=== PATIENT | male | born 1935 | race Caucasian/White ===

== ENCOUNTER → 2017-10-07 | Outpatient (CLI) | payer MEDICARE ==
[~2017-10-07] MED LIST: AMLO-96 PO; AMOX875T60 PO; ASPI-1471 PO; FESO8PT PO; FINA5TAB67 PO; GLUC-178 PO; MECL25TA9 PO; MECLIZINE PO; MELO-149 PO; MULT-1335 PO; MULT-865 PO; PNEU0.5D3 IM; PROSTATE SUPPLEMENT; RAMI10CA52 PO; SOLI5TAB PO; TAMS0.4C25 PO
[2017-10-07 09:37] LABS: PLATELET COUNT, AUTOMATED 176 K/uL (150-450)
[2017-10-07 10:33] LABS: LDL CHOLESTEROL 46 mg/dl
== END ==
LOC: LAB 08:56
PROVIDERS: ATTEND Internal Medicine
DX: R94.6 Abnormal results of thyroid function studies (principal); I10 Essential (primary) hypertension; N40.0 Benign prostatic hyperplasia without lower urinary tract symptoms; R79.89 Other specified abnormal findings of blood chemistry; R73.9 Hyperglycemia, unspecified
CPT/HCPCS: 36415; 81001; 82040; 82247; 82310; 82374; 82435; 82465; 82565; 82947; 83036; 83718; 84075; 84132; 84155; 84295; 84443; 84450; 84460; 84478; 84520; 85025

== ENCOUNTER → 2017-11-06 | Outpatient (CLI) | payer MEDICARE | LOC: LAB 13:13 | PROVIDERS: ATTEND Internal Medicine | DX: R31.9 Hematuria, unspecified (principal) | CPT/HCPCS: 81001 ==

== ENCOUNTER → 2018-01-13 | Outpatient (CLI) | payer MEDICARE | LOC: LAB 08:59 | PROVIDERS: ATTEND Urology | DX: Z12.5 Encounter for screening for malignant neoplasm of prostate (principal) | CPT/HCPCS: 36415; G0103; 84153 ==

== ENCOUNTER 2018-06-09 13:45 | Inpatient (IN) | payer MEDICARE ==
[~2018-06-09] VITALS: Ht 180.3 cm; Wt 100.2 kg
[~2018-06-09 13:45] MED LIST changes: +AMLO-101 PO; +AMLO-111 PO; -AMLO-96 PO; -RAMI10CA52 PO; +RAMI10CA9 PO
--- NOTE | 2018-06-09 13:59 | ER Report ---
History and Physical Time Seen By MD: 13:58 Hx. of Stated Complaint: PATIENT REPORTS SWOLLEN LEFT CALF FOR 1 WEEK HPI/ROS CHIEF COMPLAINT: Left leg swelling HISTORY OF PRESENT ILLNESS: Patient is an 83-year-old male comes emergency Department today with a complaint of left leg swelling. Patient states he notices about a week ago no fever chills or sweats nausea vomiting diarrhea no chest pain or shortness of breath no history of DVTs went to see his primary care referred her here for ultrasound patient denies any calf pain or tenderness patient has no additional complaints noted REVIEW OF SYSTEMS: Respiratory: No cough, no dyspnea. Cardiovascular: No chest pain, no palpitations. Gastrointestinal: No vomiting, no abdominal pain. Musculoskeletal: Left calf swelling Remainder of the 14 system rev: Yes Allergies: Coded Allergies: No Known Drug Allergies (Verified , 07/21/14) Home Meds Active Scripts Amlodipine Besylate (NORVASC) 5 Mg Tablet, 1 TAB PO QDAY, #90 TAB 1 Refill Prov:INO AVENDANO MD 06/01/18 Meloxicam (MOBIC) 7.5 Mg Tablet, 7.5 MG PO bid with food PRN for pain, #60 TAB 3 Refills Prov:INO AVENDANO MD 05/31/18 Ramipril (RAMIPRIL) 10 Mg Capsule, 10 MG PO QDAY, #90 CAPSULE 3 Refills Prov:INO AVENDANO MD 04/21/18 Reported Medications Solifenacin Succinate (VESICARE) Unknown Strength Tablet, PO 10/06/17 Multivitamin (DAILY MULTIPLE VITAMIN) 1 Each Tablet, 1 TAB PO DAILY 03/23/17 Tamsulosin Hcl (FLOMAX) 0.4 Mg Cap.er.24h, 0.4 MG PO BID, CAP 03/23/17 Finasteride (FINASTERIDE) 5 Mg Tablet, 5 MG PO QDAY 03/23/17 Aspirin (ASPIR 81) 81 Mg Tablet., 1 TAB PO QDAY, TAB 03/23/17 Reviewed Nurses Notes: Yes Old Medical Records Reviewed: Yes Hx Smoking: No Smoking Status: Former Smoker Exposure to Second Hand Smoke?: No Hx Substance Use Disorder: No Hx Alcohol Use: Yes (1 NIGHTLY) Constitutional Vital Sign - Last 24 Hours 06/09/18 13:51 Temp 97.8 Pulse 69 Resp 20 B/P (MAP) 142/88 Pulse Ox 89 O2 Delivery Room Air Physical Exam General appearance: Alert no distress. Respiratory: Chest is non tender, lungs are clear to auscultation. Cardiac: Regular rate and rhythm [ ] Left lower some examination patient has unilateral swelling left calf measuring at 17 right At 15-1/4 patient has neurovascular intact +2 to +2.5 pitting edema otherwise unremarkable exam no redness swelling or erythema noted DIFFERENTIAL DIAGNOSIS: After history and physical exam differential diagnosis was considered for DVT versus cellulitis Medical Decision Making Data Points Result Diagram: 06/09/18 1440 06/09/18 1440 Laboratory Hematology Test 06/09/18 14:40 Red Blood Count 5.35 M/uL (4.00-5.60) Mean Corpuscular Volume 96.5 fL (80.0-96.0) Mean Corpuscular Hemoglobin 32.3 pg (26.0-33.0) Mean Corpuscular Hemoglobin Concent 33.5 g/dL (32.0-36.0) Red Cell Distribution Width 14.6 % (11.5-14.5) Mean Platelet Volume 8.3 fL (7.2-11.1) Neutrophils (%) (Auto) 64.1 % (39.4-72.5) Lymphocytes (%) (Auto) 26.0 % (17.6-49.6) Monocytes (%) (Auto) 6.1 % (4.1-12.4) Eosinophils (%) (Auto) 2.9 % (0.4-6.7) Basophils (%) (Auto) 0.9 % (0.3-1.4) Nucleated RBC Relative Count (auto) 0.0 /100WBC Neutrophils # (Auto) 5.2 K/uL (2.0-7.4) Lymphocytes # (Auto) 2.1 K/uL (1.3-3.6) Monocytes # (Auto) 0.5 K/uL (0.3-1.0) Eosinophils # (Auto) 0.2 K/uL (0.0-0.5) Basophils # (Auto) 0.1 K/uL (0.0-0.1) Nucleated RBC Absolute Count (auto) 0.00 K/uL Prothrombin Time 13.8 seconds (12.0-14.4) Prothromb Time International Ratio 1.06 Activated Partial Thromboplast Time 27 seconds (23-35) D-Dimer Quantitative (PE/DVT) 3.58 ug/ml (0-0.50) Sodium Level 138 mmol/L (137-145) Potassium Level 4.1 mmol/L (3.5-5.0) Chloride Level 104 mmol/L (98-107) Carbon Dioxide Level 28 mmol/L (22-30) Blood Urea Nitrogen 16 mg/dl (9-21) Creatinine 1.00 mg/dl (0.66-1.25) Glomerular Filtration Rate Calc > 60.0 Random Glucose 100 mg/dl (75-110) Calcium Level 8.5 mg/dl (8.4-10.2) Total Bilirubin 0.6 mg/dl (0.2-1.3) Aspartate Amino Transf (AST/SGOT) 20 U/L (0-35) Alanine Aminotransferase (ALT/SGPT) 22 U/L (0-56) Alkaline Phosphatase 64 U/L (0-126) Troponin I < 0.012 ng/ml Total Protein 6.4 g/dl (6.3-8.2) Albumin 3.3 g/dl (3.5-5.0) Chemistry Test 06/09/18 14:40 White Blood Count 8.1 k/uL (4.5-11.0) Red Blood Count 5.35 M/uL (4.00-5.60) Hemoglobin 17.3 g/dL (14.0-18.0) Hematocrit 51.6 % (42.0-52.0) Mean Corpuscular Volume 96.5 fL (80.0-96.0) Mean Corpuscular Hemoglobin 32.3 pg (26.0-33.0) Mean Corpuscular Hemoglobin Concent 33.5 g/dL (32.0-36.0) Red Cell Distribution Width 14.6 % (11.5-14.5) Platelet Count 232 K/uL (150-450) Mean Platelet Volume 8.3 fL (7.2-11.1) Neutrophils (%) (Auto) 64.1 % (39.4-72.5) Lymphocytes (%) (Auto) 26.0 % (17.6-49.6) Monocytes (%) (Auto) 6.1 % (4.1-12.4) Eosinophils (%) (Auto) 2.9 % (0.4-6.7) Basophils (%) (Auto) 0.9 % (0.3-1.4) Nucleated RBC Relative Count (auto) 0.0 /100WBC Neutrophils # (Auto) 5.2 K/uL (2.0-7.4) Lymphocytes # (Auto) 2.1 K/uL (1.3-3.6) Monocytes # (Auto) 0.5 K/uL (0.3-1.0) Eosinophils # (Auto) 0.2 K/uL (0.0-0.5) Basophils # (Auto) 0.1 K/uL (0.0-0.1) Nucleated RBC Absolute Count (auto) 0.00 K/uL Prothrombin Time 13.8 seconds (12.0-14.4) Prothromb Time International Ratio 1.06 Activated Partial Thromboplast Time 27 seconds (23-35) D-Dimer Quantitative (PE/DVT) 3.58 ug/ml (0-0.50) Glomerular Filtration Rate Calc > 60.0 Calcium Level 8.5 mg/dl (8.4-10.2) Total Bilirubin 0.6 mg/dl (0.2-1.3) Aspartate Amino Transf (AST/SGOT) 20 U/L (0-35) Alanine Aminotransferase (ALT/SGPT) 22 U/L (0-56) Alkaline Phosphatase 64 U/L (0-126) Troponin I < 0.012 ng/ml Total Protein 6.4 g/dl (6.3-8.2) Albumin 3.3 g/dl (3.5-5.0) Coagulation Test 06/09/18 14:40 Prothrombin Time 13.8 seconds Prothromb Time International Ratio 1.06 Activated Partial Thromboplast Time 27 seconds D-Dimer Quantitative (PE/DVT) 3.58 ug/ml ED Course/Re-evaluation ED Course ED clinical course and medical decision making this is an 83-year-old male comes in with unilateral lower extremity swelling confirmed extensive DVT from the base of the pedal planus process although into the iliacs follow-up supplementary a CT angiogram confirms PEs fresh and local on the right greater than left saturations have been maintained throughout rest of his labs are relatively unremarkable externum anticoagulation including Lovenox and aspirin is resting comfortable at time of admission Decision to Disposition Date: Jun 09, 2018 Decision to Disposition Time: 16:05 Depart Departure Latest Vital Signs Vital Signs Date Time Temp Pulse Resp B/P (MAP) Pulse Ox O2 Delivery O2 Flow Rate FiO2 06/09/18 13:51 97.8 69 20 142/88 89 Room Air Impression: Primary Impression: DVT (deep venous thrombosis) Additional Impression: Pulmonary emboli Condition: Improved Disposition: HOME OR SELF-CARE Referrals: INO AVENDANO MD (PCP) Problem Qualifiers ANTON GAUTAM MD Jun 09, 2018 13:59
[2018-06-09] MEDS ORDERED: ASPIRIN 81 MG CHEW PO ONE (14:35)
[2018-06-09] MEDS ORDERED: ENOXAPARIN 100 MG/ML SYR SC SCH (14:35)
--- NOTE | 2018-06-09 14:43 | EKG ---
FACILITY: [facility] - [place] PATIENT NAME: TAYLOR QUACH : [id number] MR: [id number] V: [id number] EXAM DATE: ORDERING PHYSICIAN: ANTON GAUTAM TECHNOLOGIST: SARAH Mckenna Reason : CP Blood Pressure : / mmHG Vent. Rate : 063 BPM Atrial Rate : 063 BPM P-R Int : 278 ms QRS Dur : 086 ms QT Int : 402 ms P-R-T Axes : 086 044 060 degrees QTc Int : 411 ms Sinus rhythm with 1st degree AV block Otherwise normal ECG No previous ECGs available Confirmed by Guy Bill ([id number]) on 06/09/2018 8:35:12 PM Referred By: LOTUS Confirmed By:Guy Tabor
[2018-06-09] MEDS ORDERED: NS(*) 0.9% 50 ML BAG 50 ML ONE (14:49)
[2018-06-09] MEDS ORDERED: IOPAMIDOL 76% 75 ML INFUS BTL 75 ML ONE (14:49)
[2018-06-09 14:57] LABS: PLATELET COUNT, AUTOMATED 232 K/uL (150-450)
[2018-06-09 15:10] LABS: INR 1.06
--- NOTE | 2018-06-09 15:50 | RADIOLOGY IMAGING REPORT ---
FACILITY: PATIENT NAME: Shashank Choudhury : 1935 MR: [id number] V: [id number] EXAM DATE: ORDERING PHYSICIAN: ANTON GAUTAM TECHNOLOGIST: Location: [facility] [place] Patient: Shashank Choudhury : 1935 Visit/Account:[id number] Date of Sevice: 06/09/[address] pulmonary angiogram with contrast, 3-D computer reconstructions. HISTORY: Shortness of breath. COMPARISON: Left leg Doppler ultrasound 06/09/2018. [address] images were obtained of the chest using 100 mL intravenous Isovue-370. 3-D SLAB nip reconstruction images were obtained of the pulmonary arteries. One of the following dose optimiz ation techniques was utilized in the performance of this exam: Automated exposure control; adjustment of the mA and/or kV according to the patient's size; or use of an iterative reconstruction techniqu e. Specific details can be referenced in the facility's radiology CT exam operational policy. FINDINGS: The central pulmonary arteries are mildly enlarged. Several small filling defects are present in sec ond order and third order branches of the right pulmonary artery, mainly supplying the right lower lo be consistent with a combination of chronic and acute thrombi. A few small filling defects may be pr esent in several left lower lobe pulmonary artery branches. The heart is mildly enlarged. Several l ymph nodes measuring up to 1.5 cm in diameter are present in the mediastinum and right pulmonary hilu m. Several calcified lymph nodes are present in the subcarinal region. The coronary arteries are ca lcified. The thoracic aorta is ectatic and mildly calcified. Streaky densities and several wedge-sh aped opacities are present in the periphery of both lungs. Degenerative changes are present in the s pine. Healed fractures are present in the right ribs. No pneumothorax. Arterial calcifications are present in the upper abdomen. Calcified granulomas are present in the sp nils. IMPRESSION: Positive for chronic and acute pulmonary emboli. Atherosclerosis. Bilateral lung pleural parenchymal scarring. Old pulmonary infarcts are possible. Old granulomatous disease. Mild cardiomegaly. Results were discussed with ANTON GAUTAM at 06/09/2018 3:45 PM. Report Dictated By: Patrick Juárez MD at 06/09/2018 3:34 PM Report E-Signed By: Patrick Juárez MD at 06/09/2018 3:47 PM WSN:[email or web address]
--- NOTE | 2018-06-09 15:57 | RADIOLOGY IMAGING REPORT ---
FACILITY: [facility] PATIENT NAME: Shashank Choudhury : 1935 MR: [id number] V: [id number] EXAM DATE: ORDERING PHYSICIAN: ANTON GAUTAM TECHNOLOGIST: Location: [facility] [place] Patient: Shashank Choudhury : 1935 Visit/Account:[id number] Date of Sevice: 06/09/2018 Chest with lateral, two views. HISTORY: Shortness of breath. COMPARISON: None. The heart size is normal. The thoracic aorta is mildly ectatic and calcified. Pulmonary vessels in the right mid lung may be slightly diminished. Mild streaky densities are present in the right lung and both lung bases. No pleural fluid. Degenerative changes are present in the spine and shoulders. No pneumothorax. IMPRESSION: Mild bilateral pleural parenchymal scarring. Aortic atherosclerosis. COMMENT: The patient underwent a chest CT scan on 06/09/2018, see separate report. Report Dictated By: Patrick Juárez MD at 06/09/2018 3:51 PM Report E-Signed By: Patrick Juárez MD at 06/09/2018 3:52 PM WSN:[email or web address]
--- NOTE | 2018-06-09 16:04 | RADIOLOGY IMAGING REPORT ---
FACILITY: [facility] PATIENT NAME: Shashank Choudhury : 1935 MR: [id number] V: [id number] EXAM DATE: ORDERING PHYSICIAN: ANTON GAUTAM TECHNOLOGIST: Location: [facility] Patient: Shashank Choudhury : 1935 Visit/Account:[id number] Date of Sevice: 06/09/2018 Examination: Left lower extremity duplex sonogram Comparisons: None. HISTORY: Swelling. FINDINGS: The deep venous structures of the left lower extremity were evaluated from the external iliac vein th rough the calf. There is noncompressibility with lack of flow and echogenic material extending from the left external iliac vein through the trifurcation and into the anterior tibial and posterior tibial veins within t he left calf. No surrounding fluid collections noted. IMPRESSION: 1. Extensive deep venous thrombosis involving the left lower extremity. Results were discussed with ANTON GAUTAM at 06/09/2018 3:00 PM. Report Dictated By: Woodrow Farrell MD at 06/09/2018 2:50 PM Report E-Signed By: Woodrow Farrell MD at 06/09/2018 4:00 PM WSN:[email or web address]
[2018-06-09 16:54] VITALS: BP 152/95
[2018-06-09] MEDS ORDERED: ACETAMINOPHEN 325 MG TAB PO PRN (20:00)
[2018-06-09] MEDS ORDERED: ONDANSETRON 4 MG/2 ML VIAL IVP PRN (20:00)
--- NOTE | 2018-06-09 20:28 | History & Physical ---
History of Present Illness Chief Complaint L leg swelling History of Present Illness 83M presented with one week L leg swelling. Presented to [facility] ER after sent from PCP office after being seen fro LLE swelling, denies pain does have some chronic knee pain and swelling from OA. PMHx also includes hearing loss, HTN, BPH. reports he sits frequently in recliner and sometimes sleeps in it without getting up for hours which could provoke DVT. CTA showed chronic and acute PE, no evidence R heart strain. Hemodynamically stable and on RA. Admitted for initiation of anticoagulation. History Problems: (1) BPH (benign prostatic hyperplasia) (2) Benign hypertension Home Meds Active Scripts Amlodipine Besylate (NORVASC) 5 Mg Tablet, 1 TAB PO QDAY, #90 TAB 1 Refill Prov:INO AVENDANO MD 06/01/18 Meloxicam (MOBIC) 7.5 Mg Tablet, 7.5 MG PO bid with food PRN for pain, #60 TAB 3 Refills Prov:INO AVENDANO MD 05/31/18 Ramipril (RAMIPRIL) 10 Mg Capsule, 10 MG PO QDAY, #90 CAPSULE 3 Refills Prov:INO AVENDANO MD 04/21/18 Reported Medications Solifenacin Succinate (VESICARE) Unknown Strength Tablet, 10 TAB PO DAILY 10/06/17 Multivitamin (DAILY MULTIPLE VITAMIN) 1 Each Tablet, 1 TAB PO DAILY 03/23/17 Tamsulosin Hcl (FLOMAX) 0.4 Mg Cap.er.24h, 0.4 MG PO BID, CAP 03/23/17 Finasteride (FINASTERIDE) 5 Mg Tablet, 5 MG PO QDAY 03/23/17 Aspirin (ASPIR 81) 81 Mg Tablet.dr, 1 TAB PO QDAY, TAB 03/23/17 Allergies: Coded Allergies: No Known Drug Allergies (Verified , 07/21/14) Patient History: FH: heart attack MOTHER, , Age:53 FH: natural FATHER, , Age:80 Hx Smoking: Yes Smoking Status: Former Smoker Exposure to Second Hand Smoke?: No When Quit Tobacco?: 60 yrs ago Hx Alcohol Use: Yes Alcohol Used: Wine Hx Substance Use Disorder: No Social Drug Use: Never Review of Systems All Systems Reviewed/Normal: Yes, Except as Noted Cardiovascular: No Chest Pain Respiratory: No Shortness of Breath Musculoskeletal: Other (LLE swelling) Exam Vital Signs Vital Signs Date Time Temp Pulse Resp B/P (MAP) Pulse Ox O2 Delivery O2 Flow Rate FiO2 06/09/18 17:47 92 06/09/18 16:54 97.7 61 16 152/95 (114) Room Air General Appearance: Alert, Awake, No Acute Distress Neuro: No Gross deficits Eyes: PERRLA ENT: Normal Neck: No Masses Cardiovascular: Normal Rhythm & Peripheral Pulses Respiratory: No Respiratory Distress GI: Abd Soft and Non-Tender Musculoskeletal: No Weakness/Pain Extremities: Soft and Non Tender, Warm, Pulses, Perfused, Edema (severe LLE to mid thigh) Integumentary: Skin Intact without Lesion / Mass Psych: Alert & Oriented X3 Medical Decision Making Data Points Result Diagram: 06/09/18 1440 06/09/18 1440 Laboratory Tests 06/09/18 14:40 Laboratory - CBC/BMP Diagrams 06/09/18 14:40 EKG / Imaging Imaging Examination: Left lower extremity duplex sonogram Comparisons: None. HISTORY: Swelling. FINDINGS: The deep venous structures of the left lower extremity were evaluated from the external iliac vein through the calf. There is noncompressibility with lack of flow and echogenic material extending from the left external iliac vein through the trifurcation and into the anterior tibial and posterior tibial veins within the left calf. No surrounding fluid collections noted. IMPRESSION: 1. Extensive deep venous thrombosis involving the left lower extremity. Chest CT pulmonary angiogram with contrast, 3-D computer reconstructions. HISTORY: Shortness of breath. COMPARISON: Left leg Doppler ultrasound 06/09/2018. [address] images were obtained of the chest using 100 mL intravenous Isovue-370. 3-D SLAB nip reconstruction images were obtained of the pulmonary arteries. One of the following dose optimization techniques was utilized in the performance of this exam: Automated exposure control; adjustment of the mA and/or kV according to the patient's size; or use of an iterative reconstruction technique. Specific details can be referenced in the facility's radiology CT exam operational policy. FINDINGS: The central pulmonary arteries are mildly enlarged. Several small filling defects are present in second order and third order branches of the right pulmonary artery, mainly supplying the right lower lobe consistent with a combination of chronic and acute thrombi. A few small filling defects may be present in several left lower lobe pulmonary artery branches. The heart is mildly enlarged. Several lymph nodes measuring up to 1.5 cm in diameter are present in the mediastinum and right pulmonary hilum. Several calcified lymph nodes are present in the subcarinal region. The coronary arteries are calc ified. The thoracic aorta is ectatic and mildly calcified. Streaky densities and several wedge-shaped opacities are present in the periphery of both lungs. Degenerative changes are present in the spine. Healed fractures are present in the right ribs. No pneumothorax. Arterial calcifications are present in the upper abdomen. Calcified granulomas are present in the spleen. IMPRESSION: Positive for chronic and acute pulmonary emboli. Atherosclerosis. Bilateral lung pleural parenchymal scarring. Old pulmonary infarcts are possible. Old granulomatous disease. Mild cardiomegaly. Assessment and Plan Problems: (1) DVT (deep venous thrombosis) Status: Acute Assessment & Plan: Renal function good, will begin Eliquis. Anticipate patient will be able to d/c within 1-2 days. PT consult as having some increased difficulty in ambulation. CTA shows evidence of chronic PE and acute, suspect this has been worsening for some time. (2) Pulmonary emboli Status: Acute Assessment & Plan: No evidence R heart strain, troponin negative, BNP pending, ECHO ordered. Treatment as above. (3) Benign hypertension Assessment & Plan: Resume home Rx for HTN. (4) BPH (benign prostatic hyperplasia) Assessment & Plan: Resume Flomax and finasteride. Venous Thromboembolism Antithrombotics Is Pt On Any Antithrombotics?: Yes Exam Sepsis Risk: No Definite Risk DUNN ABEL RIVERO DO Jun 09, 2018 20:27
[2018-06-09 20:41] VITALS: BP 134/81
[2018-06-09] MEDS: APIXABAN 2.5 MG TABLET PO SCH (20:55)
[2018-06-09] MEDS: TAMSULOSIN HCL 0.4 MG CAP PO SCH (20:55)
[2018-06-09 23:18] VITALS: BP 157/107
[2018-06-10 05:47] LABS: PLATELET COUNT, AUTOMATED 213 K/uL (150-450)
[2018-06-10] MEDS: TAMSULOSIN HCL 0.4 MG CAP PO SCH (07:31)
[2018-06-10] MEDS: APIXABAN 2.5 MG TABLET PO SCH (07:31)
[2018-06-10 07:46] VITALS: BP 149/87
[2018-06-10] MEDS ORDERED: RAMIPRIL 2.5 MG CAP PO SCH (09:00)
[2018-06-10] MEDS ORDERED: SOLIFENACIN SUCCINATE 5 MG TAB PO SCH (09:00)
[2018-06-10] MEDS ORDERED: amLODIPine BESYL(*) 5 MG TAB PO SCH (09:00)
[2018-06-10] MEDS ORDERED: FINASTERIDE 5 MG TAB PO SCH (09:00)
[2018-06-10] MEDS ORDERED: APIX5TAB PO (09:54)
[2018-06-10 10:23] VITALS: Ht 180.3 cm; Wt 100.2 kg
--- NOTE | 2018-06-10 10:49 | Hospitalist Depart ---
Discharge Summary Reason for Hosp/Final Diag: (1) DVT (deep venous thrombosis) Status: Acute Hospital Course & Plan: An ultrasound did reveal an extensive clot in the left leg. He was started on treatment with Lovenox and then converted to Eliquis. He will need a loading dose of 10mg twice daily for 7 days followed by 5mg twice daily. (2) Pulmonary emboli Status: Acute Hospital Course & Plan: A Ct scan did show both chronic and subacute emboli. He has been started on anticoagulation as above. He will likely require life long treatment given the preexisting clot. (3) Benign hypertension Hospital Course & Plan: He is on chronic treatment with amlodipine and ramipril. (4) BPH (benign prostatic hyperplasia) Hospital Course & Plan: He is on chronic treatment with Flomax and finasteride. Departure Latest Vital Signs Vital Signs Weight (Pounds): 221 Result Diagram: 06/10/18 0518 06/09/18 1440 Condition: Improved Discharge: Home, Self Care Discharge Instructions Home Meds Active Scripts Apixaban (ELIQUIS) 5 Mg Tablet, 5 MG PO BID, #60 TAB Prov:NIURKA ZEE DO 06/10/18 Apixaban (ELIQUIS) 5 Mg Tablet, 2 TAB PO BID, #28 TAB Prov:NIURKA ZEE DO 06/10/18 Amlodipine Besylate (NORVASC) 5 Mg Tablet, 1 TAB PO QDAY, #90 TAB 1 Refill Prov:INO AVENDANO MD 06/01/18 Ramipril (RAMIPRIL) 10 Mg Capsule, 10 MG PO QDAY, #90 CAPSULE 3 Refills Prov:INO AVENDANO MD 04/21/18 Reported Medications Solifenacin Succinate (VESICARE) Unknown Strength Tablet, 10 TAB PO DAILY 10/06/17 Multivitamin (DAILY MULTIPLE VITAMIN) 1 Each Tablet, 1 TAB PO DAILY 03/23/17 Tamsulosin Hcl (FLOMAX) 0.4 Mg Cap.er.24h, 0.4 MG PO BID, CAP 03/23/17 Finasteride (FINASTERIDE) 5 Mg Tablet, 5 MG PO QDAY 03/23/17 Discontinued Reported Medications Aspirin (ASPIR 81) 81 Mg Tablet.dr, 1 TAB PO QDAY, TAB 03/23/17 Discontinued Scripts Meloxicam (MOBIC) 7.5 Mg Tablet, 7.5 MG PO bid with food PRN for pain, #60 TAB 3 Refills Prov:INO AVENDANO MD 05/31/18 Diet: Regular Activity: As Tolerated Special Instructions: Follow up with Dr. Dash on 06/16 at 9:30am Copies to: INO AVENDANO MD ; Venous Thromboembolism Antithrombotics Is Pt On Any Antithrombotics?: Yes NIURKA ZEE DO Jun 10, 2018 10:49
[2018-06-11] MEDS ORDERED: INFLUENZA VIRUS VAC 0.5ML SYR IM ONLY ONE (10:15)
[2018-06-13] MEDS ORDERED: INFLUENZA VIRUS VAC 0.5ML SYR IM ONLY ONE (09:00)
== END 2018-06-10 12:35 | disposition home or self-care (01) | DRG 299 ==
LOC: ER 14:03 → MED 16:18
PROVIDERS: ADMIT Internal Medicine; ATTEND Internal Medicine
DX: I82.422 Acute embolism and thrombosis of left iliac vein (principal); I26.99 Other pulmonary embolism without acute cor pulmonale; N40.0 Benign prostatic hyperplasia without lower urinary tract symptoms; I10 Essential (primary) hypertension
CPT/HCPCS: 36415; 71046; 71275; 82040; 82247; 82310; 82374; 82435; 82565; 82947; 83880; 84075; 84132; 84155; 84295; 84450; 84460; 84484; 84520; 85025; 85379; 85610; 85730; 93005; 93306; 99285; J1650; J7050; Q9967

== ENCOUNTER → 2018-07-19 | Outpatient (CLI) | payer MEDICARE ==
[2018-06-10 10:23] VITALS: BMI 30.8
[~2018-07-19] MED LIST changes: +APIX5TAB PO
[2018-07-19 14:41] LABS: PLATELET COUNT, AUTOMATED 138 K/uL (150-450)
[2018-07-19 16:48] LABS: LDL CHOLESTEROL 50 mg/dl
== END ==
LOC: LAB 14:06
PROVIDERS: ATTEND Internal Medicine
DX: N40.0 Benign prostatic hyperplasia without lower urinary tract symptoms (principal); D75.1 Secondary polycythemia; I10 Essential (primary) hypertension; R79.9 Abnormal finding of blood chemistry, unspecified
CPT/HCPCS: 36415; 81256; 82040; 82247; 82310; 82374; 82435; 82465; 82565; 82728; 82947; 83540; 83550; 83718; 84075; 84132; 84155; 84295; 84443; 84450; 84460; 84478; 84520; 85025

== ENCOUNTER → 2018-12-22 | Outpatient (CLI) | payer MEDICARE ==
[2018-06-10 10:23] VITALS: BMI 30.8
[~2018-12-22] MED LIST changes: -AMLO-111 PO; +AMLO-125 PO; +CARB-340 OT
[2018-12-22 12:13] LABS: PLATELET COUNT, AUTOMATED 169 K/uL (150-450)
[2018-12-22 12:32] LABS: LDL CHOLESTEROL 52 mg/dl
== END ==
LOC: LAB 11:30
PROVIDERS: ATTEND Internal Medicine
DX: I82.409 Acute embolism and thrombosis of unspecified deep veins of unspecified lower extremity (principal); I10 Essential (primary) hypertension; E83.119 Hemochromatosis, unspecified; I26.99 Other pulmonary embolism without acute cor pulmonale; D75.1 Secondary polycythemia
CPT/HCPCS: 36415; 81001; 82728; 83540; 83550; 84443; 85025; G0103; 82040; 82247; 82310; 82374; 82435; 82465; 82565; 82947; 83718; 84075; 84132; 84153; 84155; 84295; 84450; 84460; 84478; 84520

== ENCOUNTER → 2019-01-19 | Outpatient (CLI) | payer MEDICARE ==
[2018-06-10 10:23] VITALS: BMI 30.8
[~2019-01-19] MED LIST changes: +CORED RIGHT EAR; +LEVO50TA86 PO; +RAMI5CAP7 PO
== END ==
LOC: LAB 10:34
PROVIDERS: ATTEND Urology
DX: N39.0 Urinary tract infection, site not specified (principal)
CPT/HCPCS: 81001; 87088